=== PATIENT | female | born 1985 | race Caucasian/White ===

== ENCOUNTER 2017-07-28 12:07 | Inpatient (IN) | payer OTHER, SELFPAY ==
[2017-07-16 10:44] VITALS: BMI 25.0
[2017-07-28] VITALS (16 sets, daily range): BP systolic 104–132; BP diastolic 70–90; PULSE 76–92; RESP 11–20; TEMP 36.3–37.2; O2SAT 16–99; BMI 25.0
--- NOTE | 2017-07-28 | PATH_ITS ---
[facility] Accession Number: [id number] . 01 Material submitted: . UTERUS AND BILATERAL FALLOPIAN TUBES (FIBROID) . 02 Diagnosis: Uterus And Bilateral Fallopian Tubes (Fibroid), Laparoscopic Supracervical Hysterectomy And Bilateral Salpingectomy (Weight 829 Grams): Weakly proliferative endometrium; negative for glandular hyperplasia, cytologic atypia, and malignancy. Myometrium with one intramural leiomyoma (13.7 cm in greatest dimension). Uterine serosa with no abnormality by gross examination. First described and second described fallopian tubes with involvement by endometriosis and otherwise no histomorphologic abnormality. BFI08/01/2017 . 02 Electronically signed: . Brittany Amato MD, Pathologist NPI- [id number] . 01 Gross description: . Received in formalin, labeled 1-uterus, bilateral fallopian tubes, fibroid, is a uterus (829 g, 14.2 x 8.7 x 8.5 cm) and two fimbriated fallopian tubes (tube #1: Length - 5.5 cm, diameter - 0.5 cm; tube #2: Length - 4.5 cm, diameter 0.3 cm). The cervix and ovaries are absent. The uterus is distorted. The endometrial cavity contains a solid, firm, white, whorled, well-circumscribed mass (13.7 x 8.7 x 7.8 cm). The endometrium (average thickness - 0.1 cm) is carmona-patton, smooth, and flat. The myometrium (thickness - 1.2 cm) is carmona-white. The serosa is patton-carmona, smooth, and flat. The fallopian tube have patton-purple, smooth, shiny serosa and carmona-patton unremarkable lumens. Section code: (A1-A3) endomyometrium; (A4-A6) mass, apparel trimmings sales representative; (A7) fallopian tube #1, serially sectioned, apparel trimmings sales representative; (A8) fimbria #1, bivalved, entirely submitted; (A9) fallopian tube #2, serially sectioned, apparel trimmings sales representative; (A10) fimbria #2, bivalved, entirely submitted. ([id number]) /FRR . 02 Pathologist provided ICD-10: D25.9 . 02 CPT . 506874 Performed at: 01 [facility] [address] [id number] MD Hal Berry MD Phone: [phone] Performed at: 02 [facility] [address] [place] [id number] MD Pradeep Phillips MD Phone: [phone]
--- NOTE | 2017-07-28 12:40 | PM.PREOP ---
Pre-operative Note Interval Note Pre-op Check: History & Physical Reviewed and Exam Performed
[2017-07-28] MEDS: LACTATED RINGERS 1,000 ML 42 ML IV (12:46)
--- NOTE | 2017-07-28 12:56 | SUR.PREOP ---
Pt gowned and in bed with family at bedside. Dr. Alas at bedside for eval. bed locked and low, call light within reach.
[2017-07-28] MEDS: CEFAZOLIN 2 GM/100 ML FROZ.PIGGY IV (13:00)
--- NOTE | 2017-07-28 14:51 | SUR.PHASEI ---
on arrival in pacu pt c/o 09/23 pain, medicated per DR. Bell with some improvement. denies nausea
[2017-07-28] MEDS: fentaNYL 100 MCG/2 ML INJ 50 MCG IV ×2 (15:00→15:09)
--- NOTE | 2017-07-28 15:12 | P.OP_ITS ---
Operative Date/Time/Diagnoses - Date of procedure: 07/28/17 Time of procedure: 14:59 Pre-op diagnosis: Symptomatic large uterine fibroid Post-op diagnosis: same Procedure & Clinicians Procedure: Laparotomy with supracervical hysterectomy and bilateral salpingectomy Same procedure as scheduled: Yes Indications: Large uterine fibroids causing menorrhagia and pain Surgeon: Sharifa Lomax Equipment Maintenance Tech: Anton Lundberg Anesthesia Type: General Operative Notes Findings: Large uterine fibroids. Normal ovaries bilaterally. Adhesions of the left fallopian tube and the descending colon to the left ovary Closure Type: primary Specimen(s): other (Uterus above the level of the bladder and fallopian tube) Applied: catheter Blood products transfused: none Procedure in detail: Patient was brought to the operating room where she underwent general anesthesia. She was in a supine position. A Mercado catheter was placed. She was prepped and draped in usual sterile fashion. 2 g Ancef were in prior to beginning of the case. A check system was reviewed with personal in the case. A Pfannenstiel incision was made with a scalpel and carried down to the fascial layer with Bovie. The fascial layer was incised transversely and the midline attachments superiorly and inferiorly. The rectus muscles were separate in the midline and the peritoneum entered sharply. The peritoneal incision was extended superiorly and inferiorly. The self-retaining retractor was placed. The uterus was elevated out of the abdomen. The fallopian tube was grasped with a Dillan and sequential bites across the mesosalpinx with ligation with O Vicryl suture, which was used throughout the rest the case unless otherwise indicated, allowed removal of the tube. The utero-ovarian ligament was clamped cut and ligated. The round ligaments were clamped cut and ligated. Sequential bites taken down the broad ligaments until the bladder reflection was reached. The Bovie was used to transect across the cervix. Bleeding was controlled with the Bovie and then the Bovie was used to cauterize down in the endocervical canal. The top of the cervix was closed with figure-of -eight sutures. Adequate hemostasis was noted. The abdomen was irrigated. The peritoneal incision was closed with 2 0 Vicryl suture. The fascial layer was closed with 2 #1 Vicryl suture starting in the corners and working toward the midline. The incision was irrigated. 3 0 Vicryl suture was used to close the space below the skin. The skin was closed with 4 O Vicryl. Patient went to recovery room in good condition. Counts of instruments and sponges were correct. Complications: none Condition: stable Disposition: Acute Care Plan for aftercare: Routine post hysterectomy. Home in 2 days.
[2017-07-28] MEDS: LORazepam 2 MG/ML SYRINGE 0.5 MG IV (15:22)
--- NOTE | 2017-07-28 15:34 | SUR.PHASEI ---
patient awake and alert, pain controlled, emotions/crying resolved, takin oral hydration without nausea. admission pending after change of shift.
[2017-07-28] MEDS: LACTATED RINGERS 1,000 ML 100 ML IV (17:07)
[2017-07-28] MEDS: OXYCODONE/ACETAMINOPHEN 5/325 TABLET 2 TAB PO ×2 (17:07→21:01)
[2017-07-28] MEDS: KETOROLAC 30 MG/ML VIAL IV (17:08)
--- NOTE | 2017-07-28 17:38 | PC.ADMIT ---
[email or web address] [address] Admission Note: The patient,Arely Higuera,32 y/o, was given written information regarding hospital policies, unit procedures and contact persons. Patient's smoking status: Never smoker. Vital Signs - 8 hr 07/28/17 12:40 07/28/17 14:25 07/28/17 14:40 Temperature 97.3 F L 97.6 F Pulse Rate 86 80 84 Respiratory Rate 15 14 Blood Pressure 121/70 H 109/77 104/72 Pulse Oximetry 16 L 96 95 07/28/17 14:52 07/28/17 14:56 07/28/17 15:02 Temperature Pulse Rate 80 80 86 Respiratory Rate 20 18 12 Blood Pressure 108/81 H 116/80 121/86 H Pulse Oximetry 97 95 99 07/28/17 15:11 07/28/17 15:16 07/28/17 15:27 Temperature 97.4 F L Pulse Rate 79 88 79 Respiratory Rate 11 L 20 14 Blood Pressure 119/90 H 125/90 H 116/87 H Pulse Oximetry 98 99 98 07/28/17 15:46 07/28/17 16:00 07/28/17 16:30 Temperature 99.0 F 97.4 F L Pulse Rate 80 86 76 Respiratory Rate 18 18 16 Blood Pressure 120/86 H 107/89 H 110/78 Pulse Oximetry 97 97 91 07/28/17 17:00 Temperature Pulse Rate 90 Respiratory Rate 18 Blood Pressure 132/90 H Pulse Oximetry 99
--- NOTE | 2017-07-28 17:39 | PC.NURSE ---
patient came up to floor at around 1600, with iv catheter in place and patient, vargas catheter in place and patent. patient oriented to room and call light. pain meds given by this rn for 5/10 pain rating in abd. patient crying before medications, will reassess when appropriate. and friends at bedside. patient is sitting up in bed and eating dinner. call light in reach. ivf running as ordered. patient is a&ox4, denies nausea, sob, or dizziness. bowel tones hypoactive, heart rate is regular, and lung sounds are clear. dressing to abd is c/d/i. patient denies tingling or numbness, chief environmental commitment officer strong and equal, demonstrates can wiggle toes. 98% on RA, but de-sats down to 88% on RA when asleep. 1L of o2 applied via nc at this time, will continue to reassess. will continue to monitor.
[2017-07-28] MEDS: DOCUSATE 250 MG CAPSULE PO (21:02)
[2017-07-28] MEDS: HYDROMORPHONE 2 MG TABLET PO (21:41)
[2017-07-29] VITALS (10 sets, daily range): BP systolic 100–113; BP diastolic 66–78; PULSE 68–84; RESP 13–18; TEMP 36.7–37.1; O2SAT 97–99; BMI 25.0
[2017-07-29] MEDS: HYDROMORPHONE 2 MG TABLET PO ×7 (00:33→22:06)
[2017-07-29] MEDS: LACTATED RINGERS 1,000 ML 100 ML IV ×3 (03:08→22:07)
[2017-07-29 05:38] LABS: Add Manual Diff / Slide Review NO; Basophils Percent Auto 0.1 % (0-2); Eosinophils Percent Auto 0.1 % (2-4); Hematocrit 31.2 % (36-46); Hemoglobin 11.1 g/dL (12.0-16.0); Lymphocytes Percent Auto 11.5 % (25-40); Mean Corpuscular HGB Conc 35.5 % (30-36); Mean Corpuscular Hemoglobin 34.2 PG (26-34); Mean Corpuscular Volume 96.1 fL (80-100); Monocytes Percent Auto 10.1 % (3-14); Neutrophils Absolute Auto 8700 /uL (3000-5900); Neutrophils Percent Auto 78.2 % (50-75); Platelet Count 206 X10^3/uL (150-400); Red Blood Cell Count 3.25 X10^6/uL (4.0-5.2); Red Cell Distribution Width 12.2 % (11.6-14.8); White Blood Cell Count 11.1 X10^3/uL (4.5-11.0)
[2017-07-29] MEDS: ESCITALOPRAM 10 MG TABLET PO (08:10)
[2017-07-29] MEDS: DOCUSATE 250 MG CAPSULE PO ×2 (08:34→22:06)
--- NOTE | 2017-07-29 10:09 | PC.NURSE ---
Addendum entered by Karlee Garcia R.N. 07/29/17 14:21: Rogelio azar'bria at 1310. Patient had one large unmeasured void since and reports no s/sx retention. Sitting in the chair now. Reports she felt somewhat dizzy/lightheaded, but was able to walk into bathroom with SEMICONDUCTOR PACKAGES TESTER assist. Reports quite an increase in abd pain after activity (had been given PO Dilaudid and IV Toradol just before she got up). She's up in the chair, splinting her belly and doing some good deep breathing. Instructed to call for staff assist when she gets tired of sitting up and she verbalized understanding. Call light in reach. Original Note: Addendum entered by Karlee Garcia R.N. 07/29/17 12:49: Lives on [facility] and will need priority board for [facility] at time of discharge Original Note: Shift summary: Awake and alert, oriented X3. Abd dressing C/D/I, no vaginal bleeding noted. Vargas to gravity, urine clear yellow. Waiting on MD to make rounds since there does not seem to be a standing order to d/c vargas. PO Dilaudid working well to manage abd pain, pain 3/10 at reassessment. Tolerating diet without N/V. Lungs CTA, HRR. SpO2 on RA 97%. Reports feeling a little more lightheaded than yesterday but otherwise pretty good. Has not wanted to get OOB yet, but we will proceed cautiously when she's ready. Her BP was 104/66 this morning. IVF per orders, site in L wrist WNL. Hopes to close her eyes and nap a bit now. Able to make needs known and calls appropriately. Light in reach.
--- NOTE | 2017-07-29 10:52 | P.PN_ITS ---
Subjective Interval history: Patient is postoperative day 1. Laparotomy with supracervical hysterectomy. Patient denies any nausea. She has not gotten out of bed yet due to some mild dizziness. Date Patient Seen: 07/29/17 Time Patient Seen: 10:49 Exam Vital Signs (past 8 hours): Vital Signs - 8 hr 3 07/29/17 05:15 07/29/17 08:26 07/29/17 08:29 Temperature 98.8 F 98.4 F Pulse Rate 68 77 Respiratory Rate 16 13 Blood Pressure 104/71 104/66 Pulse Oximetry 98 98 97 Pulse Oximetry 97 Oxygen Delivery Method Room Air Oxygen Flow Rate 0 Narrative Exam Narrative: Patient's abdomen is soft, minimally tender. Her dressing is dry. Extremities without edema, nontender. Objective Labs Result Diagrams: 07/29/17 05:10 Labs: Laboratory Results - last 24 hr 07/29/17 05:10 WBC 11.1 H RBC 3.25 L Hgb 11.1 L Hct 31.2 L MCV 96.1 MCH 34.2 H MCHC 35.5 RDW 12.2 Plt Count 206 Neut % (Auto) 78.2 H Lymph % (Auto) 11.5 L [place] % (Auto) 10.1 Eos % (Auto) 0.1 L Baso % (Auto) 0.1 Neut # (Auto) 8700 H Assessment & Plan Post-op Postoperative Procedures Operation Date: 07/28/17 13:00 Actual Procedures Side Surgeon p Total Abdominal Hysterectomy supracervical with bilateral salpingectomies Not Applicable Sharifa Lomax MD Postoperative day: 1 Postoperative status: doing well Postoperative plan: routine post-op care (Remove Mercado if patient able to ambulate.) Time Spent With Patient less than 15 minutes
--- NOTE | 2017-07-29 13:15 | CM.SWNOTE ---
DCP/FRAUD INVESTIGATOR/Assessment: Reviewed chart. FRAUD INVESTIGATOR received referral for social service consult no reason indicated/found. Patient is a 32yr old female admitted to [facility] for elective BRAXTON performed by Dr. Lomax on 07-28-17. Primary payor is 1)[employer]. PCP not listed. FRAUD INVESTIGATOR reviewed chart. biopsychologist indicates past history of marijuana and cocaine use. Met with patient explained FRAUD INVESTIGATOR/DCP role. Patient alert and oriented at time of visit. Pt. reports that she resides with her spouse/Garett on [address]. Pt. and spouse have no children and were not planning on having any. Patient reports that she has worked for local [employer] on [facility] [facility] for the last 16yrs. Pt. denies any use or issues related to illegal drugs. Patient does report that she smokes cigarettes on occasion. Patient denies any d/c planning needs. Patient reports that MD mentioned to her that she will most likely be medically stable for d/c tomorrow 07-30-17. Patient is requesting priority boarding pass for return ferry to [place]. RN notified and will put in notes. If MD rounds early patient hopes to catch the 10:30AM ferry if not, next ferry is at 3:40pm. Spoke with RN and she reports no concerns and or issues related to patient's care. RN unsure whey social service consult placed. Notified RN that if FRAUD INVESTIGATOR needs were to arise to let CM team know. Otherwise plan is for patient to d/c home with supportive spouse tomorrow. P: Home when stable. NATALIO Rubi
[2017-07-29] MEDS: KETOROLAC 30 MG/ML VIAL IV (13:48)
[2017-07-30 00:55] VITALS: BP 115/79; PULSE 72; RESP 16; TEMP 36.8; O2SAT 94
[2017-07-30] MEDS: HYDROMORPHONE 2 MG TABLET PO ×2 (01:42→07:56)
[2017-07-30 03:27] VITALS: O2SAT 97
[2017-07-30 05:05] VITALS: BP 87/63; PULSE 78; RESP 16; TEMP 36.3; O2SAT 94
[2017-07-30 06:57] VITALS: BP 114/76
[2017-07-30] MEDS: ESCITALOPRAM 10 MG TABLET PO (08:02)
[2017-07-30] MEDS: DOCUSATE 250 MG CAPSULE PO (08:02)
[2017-07-30 08:15] VITALS: BP 131/91; PULSE 85; RESP 16; TEMP 36.9; O2SAT 96
--- NOTE | 2017-07-30 08:55 | PM.DS.1 ---
History of Present Illness Date Patient Seen: 07/30/17 Time Patient Seen: 07:44 Chief complaint: Menorrhagia Narrative: Arely Higuera is a 32 year old female admitted for laparotomy with supracervical hysterectomy bilateral salpingectomy. Patient had some initial dizziness postoperative with need to change pain medicine from Percocet to Dilaudid. By postoperative day 2. The patient was passing gas, her pain was under control. Patient was urinating and ambulatory. Discharge Providers Date of admission: 07/28/17 12:07 Consults: 07/28/17 16:47 Consult to Ball Truing Machine Operator Routine Comment: Discharge provider: Sharifa Lomax MD Discharge Date: 07/30/17 Summary Discharge Diagnosis (1) Menorrhagia with regular cycle: Status: Acute (2) S/P abdominal supracervical subtotal hysterectomy: Status: Acute Time Spent with Patient Total time spent providing and/or coordinating discharge services: Exam Vital Signs (past 8 hours): Vital Signs - 8 hr 07/30/17 03:27 07/30/17 05:05 07/30/17 06:57 Temperature 97.4 F L Pulse Rate 78 Respiratory Rate 16 Blood Pressure 87/63 L 114/76 Pulse Oximetry 97 94 07/30/17 08:15 Temperature 98.4 F Pulse Rate 85 Respiratory Rate 16 Blood Pressure 131/91 H Pulse Oximetry 96 Pulse Oximetry 96 Oxygen Delivery Method Room Air Oxygen Flow Rate 0 Narrative Exam Narrative: Abdomen is soft, minimally tender, no bloating. Incision is clean, dry, and intact. No vaginal bleeding. Extremities are without edema and nontender. Objective Labs Result Diagrams: 07/29/17 05:10 Discharge Plan Discharge Plan Patient Disposition: Home, Self-Care Discharge Med Rec/Prescriptions Prescriptions: New hydromorphone 2 mg Tablet 2 mg PO Q3H PRN (Reason: Severe Pain) Qty: 40 RF: 0 Continue escitalopram oxalate 10 mg Tablet 10 mg PO DAILY RF: 0 Discontinued desog-e.estradiol/e.estradiol [Kariva (28)] 1 EACH tablet 1 tab PO QDAY Qty: 0 RF: 0 oxycodone-acetaminophen [Percocet] 5-325 mg tablet 2 tab PO Q4-6H PRN (Reason: pain) Qty: 60 RF: 0 Provider Discharge Instructions Activity: Do not lift anything over 20 lbs until your doctor says it's safe. Cold/Heat Therapy: Apply heating pad on your abdomen as needed for comfort (not too hot) Wound Care Report to your healthcare provider any signs of infection, such as:: chills, fever, increased pain and unusual drainage Dressing: Leave steri-strips in place for 2 weeks Discharge Data Attending Provider: Sharifa Lomxa Admit Date/Time: 07/28/17 12:07
--- NOTE | 2017-07-30 08:58 | P.DS_ITS ---
History of Present Illness Date Patient Seen: 07/30/17 Time Patient Seen: 07:44 Chief complaint: Menorrhagia Narrative: Arely Higuera is a 32 year old female admitted for laparotomy with supracervical hysterectomy bilateral salpingectomy. Patient had some initial dizziness postoperative with need to change pain medicine from Percocet to Dilaudid. By postoperative day 2. The patient was passing gas, her pain was under control. Patient was urinating and ambulatory. Discharge Providers Date of admission: 07/28/17 12:07 Consults: 07/28/17 16:47 Consult to Brick Chimney Supervisor Routine Comment: Discharge provider: Sharifa Lomax MD Discharge Date: 07/30/17 Summary Discharge Diagnosis (1) Menorrhagia with regular cycle: Status: Acute (2) S/P abdominal supracervical subtotal hysterectomy: Status: Acute Time Spent with Patient Total time spent providing and/or coordinating discharge services: Exam Vital Signs (past 8 hours): Vital Signs - 8 hr 3 07/30/17 03:27 07/30/17 05:05 07/30/17 06:57 Temperature 97.4 F L Pulse Rate 78 Respiratory Rate 16 Blood Pressure 87/63 L 114/76 Pulse Oximetry 97 94 3 07/30/17 08:15 Temperature 98.4 F Pulse Rate 85 Respiratory Rate 16 Blood Pressure 131/91 H Pulse Oximetry 96 Pulse Oximetry 96 Oxygen Delivery Method Room Air Oxygen Flow Rate 0 Narrative Exam Narrative: Abdomen is soft, minimally tender, no bloating. Incision is clean, dry, and intact. No vaginal bleeding. Extremities are without edema and nontender. Objective Labs Result Diagrams: 07/29/17 05:10 Discharge Plan Discharge Plan Patient Disposition: Home, Self-Care Discharge Med Rec/Prescriptions Prescriptions: New hydromorphone 2 mg Tablet 2 mg PO Q3H PRN (Reason: Severe Pain) Qty: 40 RF: 0 Continue escitalopram oxalate 10 mg Tablet 10 mg PO DAILY RF: 0 Discontinued desog-e.estradiol/e.estradiol [Kariva (28)] 1 EACH tablet 1 tab PO QDAY Qty: 0 RF: 0 oxycodone-acetaminophen [Percocet] 5-325 mg tablet 2 tab PO Q4-6H PRN (Reason: pain) Qty: 60 RF: 0 Provider Discharge Instructions Activity: Do not lift anything over 20 lbs until your doctor says it's safe. Cold/Heat Therapy: Apply heating pad on your abdomen as needed for comfort (not too hot) Wound Care Report to your healthcare provider any signs of infection, such as:: chills, fever, increased pain and unusual drainage Dressing: Leave steri-strips in place for 2 weeks Discharge Data Attending Provider: Sharifa Lomax Admit Date/Time: 07/28/17 12:07
== END 2017-07-30 10:20 | disposition home or self-care (01) | DRG 743 ==
PROVIDERS: Admitting Provider Specialist; Family Provider Specialist; Visit Provider Specialist
PROC: 0UT90ZZ Resection of Uterus, Open Approach (ICD-10-PCS; CPT 58150; principal; 2017-07-28 13:00)
DX: D25.9 Leiomyoma of uterus, unspecified (principal); N93.9 Abnormal uterine and vaginal bleeding, unspecified; R42 Dizziness and giddiness
CPT/HCPCS: 36415; 58180; 85025; J0690; J1100; J1170; J1885; J2060; J2250; J2405; J2704; J3010

== ENCOUNTER → 2020-06-01 09:49 | Outpatient (CLI) | payer BC, SELFPAY ==
[2017-07-29 02:14] VITALS: BMI 25.0
[2020-06-01] MEDS: COVID-19 VACC #1, MRNA(MOD) 100 MCG/0.5 ML VIAL IM (09:57)
== END ==
PROVIDERS: Family Provider Specialist; Visit Provider Internal Medicine
DX: Z23 Encounter for immunization (principal)
CPT/HCPCS: 0011A; 91301

== ENCOUNTER → 2020-06-29 09:01 | Outpatient (CLI) | payer BC, SELFPAY ==
[2017-07-29 02:14] VITALS: BMI 25.0
[2020-06-29] MEDS: COVID-19 VACC #2, MRNA(MOD) 100 MCG/0.5 ML VIAL IM (09:06)
== END ==
PROVIDERS: Family Provider Specialist; Visit Provider Internal Medicine
DX: Z23 Encounter for immunization (principal)
CPT/HCPCS: 0012A; 91301

== ENCOUNTER → 2021-06-06 11:32 | Outpatient (CLI) | payer BC, SELFPAY ==
[2017-07-29 02:14] VITALS: BMI 25.0
[2021-06-07 18:51] LABS: Add Manual Diff / Slide Review NO; Basophils Absolute Auto 0 /uL (0-100); Basophils Percent Auto 0.5 % (0-2); Eosinophils Absolute Auto 100 /uL (0-450); Eosinophils Percent Auto 1.7 % (2-4); Hematocrit 41.9 % (36-46); Hemoglobin 14.2 g/dL (12.0-16.0); Lymphocytes Absolute Auto 1300 /uL (1100-4500); Lymphocytes Percent Auto 20.9 % (25-40); Mean Corpuscular Hemoglobin 32.6 PG (26-34); Monocytes Absolute Auto 400 /uL (0-900); Neutrophils Absolute Auto 4400 /uL (1500-7000); Neutrophils Percent Auto 70.9 % (50-75); Platelet Count 227 X10^3/uL (150-400); Red Blood Cell Count 4.37 X10^6/uL (4.0-5.2); Red Cell Distribution Width 12.7 % (11.6-14.8); White Blood Cell Count 6.3 X10^3/uL (4.5-11.0)
[2021-06-07 19:01] LABS: Alanine Aminotransferase 19 IU/L (<35); Albumin 4.4 g/dL (3.5-5.0); Albumin Globulin Ratio 1.6 (1.0-2.8); Alkaline Phosphatase 53 U/L (38-126); Aspartate Aminotransferase 24 IU/L (14-36); BUN Creatinine Ratio 18.1 (6-22); Bilirubin Total 0.5 mg/dL (0.2-1.3); Blood Urea Nitrogen 15 mg/dL (7-17); Calcium 9.8 mg/dL (8.4-10.2); Carbon Dioxide 29 mmol/L (22-32); Chloride 101 mmol/L (98-107); Estimated Glomerular Filt Rate > 60.0 mL/min (>60); Globulin 2.7 g/dL (1.7-4.1); Glucose 104 mg/dL (70-100); HEMOLYSIS < 15 (0-50); Sodium 135 mmol/L (137-145); Total Protein 7.1 g/dL (6.3-8.2)
[2021-06-07 19:28] LABS: TSH w/ Reflex to FT4 1.91 uIU/mL (0.47-4.68)
== END ==
PROVIDERS: PCP Physician Assistant; Visit Provider Physician Assistant
DX: F39 Unspecified mood [affective] disorder (principal); F41.9 Anxiety disorder, unspecified
CPT/HCPCS: 80053; 84443; 85025